=== PATIENT | male | born 1950 | race Caucasian/White ===

== ENCOUNTER 2016-04-02 09:03 | Emergency (ER) | payer MEDICARE ==
[~2016-04-02] VITALS: Ht 170.2 cm; Wt 100.0 kg
[~2016-04-02 09:03] MED LIST: CITA20TA PO; CLONAZEPAM0.5 M1 PO; ENAL20TA79 PO; POTA-17 PO; TAM4 PO; [UNRECOGNIZED DRUG - CODE] PO; [UNRECOGNIZED DRUG - CODE] PO
[2016-04-02 09:06] VITALS: BP 138/83; PULSE 69; RESP 20; O2SAT 99
--- NOTE | 2016-04-02 09:14 | ED.REPORT ---
HPI-Extremity Problem Upper Date of Service Apr 02, 2016 ED Provider: Dr. Cartagena 65 year old male with a hx of bilat rotator cuff surgeries and HTN who presents to the ED with R shoulder pain after he slipped on ice and fell into the corner of the garage just [employer]. The pain is exacerbated to 10/10 with any movement. He reports a "crunching" movement with any movement. His pain is 5/10 at rest. Pt has a slight head scrape but denies any LOC. He denies any other injury. He last ate cereal at 0730 this AM. Nursing Notes Stated Complaint: FELL/POSS RIGHT SHOULDER INJURY Chief Complaint: Extremity Trauma Nursing Notes Reviewed: Yes Allergies: Coded Allergies: hydrocodone bitartrate (Verified Adverse Reaction, Severe, SUICIDAL, ) Scheduled Allopurinol-Expunged Drug, Do Not Renew! (Allopurinol-Expunged Drug, Do Not Renew!) 300 Mg Tablet 400 MG PO AM Citalopram-Expunged Drug, Do Not Renew! (Citalopram-Expunged Drug, Do Not Renew! ) 20 Mg Tablet 20 MG PO DAILY Colchicine-Expunged Drug, Do Not Renew! (Colchicine-Expunged Drug, Do Not Renew! ) 0.6 Mg Tablet 0.6 MG PO BID Enalapril-Expunged Drug, Do Not Renew! (Enalapril-Expunged Drug, Do Not Renew!) 20 Mg Tablet 20 MG PO AM Potassium Citrate-Expunged Drug, Do Not Renew (Urocit-K--Expunged Drug, Do Not Renew!) 10 Meq Tablet.sa 10 MEQ PO AM Tamsulosin-Expunged Drug, Do Not Renew! (Flomax-Expunged Drug, Do Not Renew!) 0.4 Mg Capsule 0.4 MG PO HS clonazePAM-Expunged Drug, Do Not Renew! (clonazePAM-Expunged Drug, Do Not Renew! ) 0.5 Mg Tablet 0.5 MG PO BID FOR ANXIETY Scheduled PRN oxyCODONE-Acetaminophen 5-325 mg (oxyCODONE-Acetaminophen 5-325 mg) 1 Each Tablet 1-2 TAB PO Q6H PRN PRN For Pain General Time Seen by MD: 09:13 Chief Complaint Shoulder injury right Hx Obtained From: Patient Arrived By: Walk-in Onset Occurred: Just prior to arrival Symptom Duration: Since onset Caused by: Fall on ground Location: : Shoulder right Quality: Painful Severity: Current: Pain level 5 out of 10 Severity: Maximum: Pain level 10 out of 10 Associated with: Denies: Loss of consciousness, Neck pain Exacerbated by: Movement Past Medical History Past Medical History Hypertension Kidney cancer Past Surgical History Partial nephrectomy, 80% left Rotator cuff Bilat L wrist ORIF Back Knees Smoking History Never Smoker Social History Alcohol Use: "Social" Drug Use: Denies drug use Other Social History: Ambulatory Status Independent Review of Systems Basic Review of Systems Eyes: Vision NL, No discharge ENT: Hearing NL, No pain, No nasal congestion, No pharyngeal pain Respiratory: No shortness of breath, No cough Cardiovascular: No chest pain, No palpitations GI: No abdominal pain, No nausea, No vomiting Psychiatric: Normal thought content Constitutional: Denies: Fever Musculoskeletal: Reports: Joint pain, Joint swelling, Denies: Neck pain Skin: Denies Bruising, Denies Rash Neurologic: Denies: Change LOC, Headache Complete sys rev & neg: except as marked. Physical Exam Initial Vital Signs Vital Signs (First) Date Time Temp Pulse Resp B/P Pulse Ox O2 Delivery O2 Flow Rate FiO2 04/02/16 09:06 35.8 69 20 138/83 99 Room Air Initial VS: Reviewed ENT: Conjunctiva normal, No scleral icterus Skin: Warm, Dry, No cyanosis Neurologic: Alert, Oriented, Nonfocal Psychiatric: Mood/affect normal, Behavior normal, Normal thought content General/Constitutional: Awake, Alert, Cooperative Neck: Atraumatic, Supple, Full range of motion Respiratory / Chest: Breath sounds NL, Breath sounds = bilat, No respiratory distress, No rales, No rhonchi, No wheezing Cardiovascular: Heart rate NL, Regular rhythm, Heart sounds NL, Peripheral circulation NL Upper Extremity / MS: Neurologic intact, Vascular intact Gross deformity of R shoulder with fullness anteriorly. Head / Eyes: Normocephalic, PERRL Scrape to R forehead Lower Extremity / Pelvis / MS: Atraumatic, Full range of motion, Neurologic intact, Vascular intact, No edema Interpretation & Diagnostics Interpretation & Diagnostics: CT shoulder: IMPRESSION: 1. Findings consistent with Neer 2 part fracture of the humeral neck and greater tuberosity, with 1.7 cm medial displacement of the transverse humeral neck fracture component. 2. Findings consistent with remote injury of the acromioclavicular joint as well, with multiple associated posttraumatic heterotopic ossification. Dictated by: Serafin Dawson M.D. on 04/02/2016 at 11:57 Lab Results Interpretation Test 04/02/16 09:25 Hold Purple Top Tube Received (Received) Hold Blue Top Tube Received (Received) Hold [place] Top Tube Received (Received) Hold Kraft Top Tube Received (Received) X-Ray Interpretation Xray Interpretation: IMPRESSION: Comminuted fractures of the right humeral neck and greater tuberosity. Dictated by: Serafin Dawson M.D. on 04/02/2016 at 10:11 X-Ray Ordered: Shoulder right Interpretation / Wet Read by: Interpret - Radiologist Re-Eval/Medical Decision Re-Evaluation/Progress #1: Time of Eval: 10:00 Re-Evaluation/Progress Note: Pt updated of imaging results and plan for CT. Re-Evaluation/Progress #2: Time of Eval: 11:59 Re-Evaluation/Progress Note: Pt updated of CT findings. Pain is controlled. Discussed plan for d/c and f/u with ortho. All questions addressed. Consultation : Referral / Consult Name: Kunal Quezada MD Consulted With: Orthopedic Call Returned at: 09:55 Note: Has reviewed imaging. No surgery today. Will see in office tomorrow. Agrees with plan for sling and pain control. Counseled Regarding: Diagnosis, Lab results, Need for follow-up, When/why to return to ED Discharge & Departure Impression: Primary Impression: Proximal humerus fracture Encounter type: initial encounter Fracture type: closed Fracture morphology : unspecified fracture morphology Laterality: right Qualified Code: S42.201A - Unspecified fracture of upper end of right humerus, initial encounter for closed fracture Disposition: Home Discharge Condition All VS Reviewed: Yes Condition: Improved Patient Instructions: Arm Fracture in Adults (ED), How to Use a Sling (GEN) Additional Instructions: You have a fracture to your upper arm. There is no need for surgery today. Dr Quezada will look at the CT scan and will determine if you need surgery in the next days. Use a sling to keep the arm in place. You have an appointment tomorrow with the Dr Quezada at 07:45 AM. For pain you can use Ibuprofen 600mg eery 6 hours and/or 1-2 Percocet every 6 hours as directed. I'm glad you didn't hurt anything else. I hope you heal quickly! You can also use ice packs to help with pain and swelling. Referrals: Amara Giang MD (PCP) Kunal Quezada MD Scribe Attestation Portions of this note were transcribed by Erica Martell. I, (Dr. Cartagena) personally performed the history, physical exam and medical decision-making; I reviewed and confirmed the accuracy of the information in the transcribed note. Signed by: Eirca Martell. 04/02/2016, 1018 copies to: Amara Giang MD; Kunal Quezdaa MD, Shawna L MD Apr 02, 2016 09:13 Erica Martell Apr 02, 2016 09:27
[2016-04-02] MEDS ORDERED: Ondansetron 2 mg/mL 2 mL Inj IVPUSH PRN (09:25)
[2016-04-02] MEDS ORDERED: HYDROmorphone 0.5 mg/0.5 mL iSecure Syringe IVPUSH PRN (09:25)
[2016-04-02] MEDS ORDERED: HYDROmorphone 1 mg/mL Inj IVPUSH ONE (09:25)
[2016-04-02] MEDS ORDERED: oxyCODONE-Acetamin 5-325 mg Tablet PO ONE ×2 (10:05→12:00)
--- NOTE | 2016-04-02 10:12 | DRSVH ---
PROCEDURE: X-RAY RIGHT SHOULDER, MINIMUM TWO VIEWS ([id number]) INDICATIONS: 65 year-old male with right shoulder pain after trauma. TECHNIQUE: 3 views of the shoulder were acquired. COMPARISON: None. FINDINGS: Bones: Comminuted fractures involve the right humeral neck, as well as the base of the greater tubero sity. There is moderate acromioclavicular joint degeneration. No suspicious bony lesions. Visualized ribs appear intact. Soft tissues: No suspicious soft tissue calcifications. IMPRESSION: Comminuted fractures of the right humeral neck and greater tuberosity. Dictated by: Serafin Dawson M.D. on 04/02/2016 at 10:11 Approved by: Serafin Dawson M.D. on 04/02/2016 at 10:11
[2016-04-02] MEDS ORDERED: OXYC1TAB24 PO (11:56)
--- NOTE | 2016-04-02 11:59 | DRSVH ---
PROCEDURE: CT SHOULDER RIGHT W/O CONTRAST ([id number]) INDICATIONS: 65 year-old male with proximal humeral fracture. TECHNIQUE: Noncontrast 1-1.5 mm thick sections acquired from the acromioclavicular joint to the inferior scapula , with coronal and sagittal reformatting. COMPARISON: [facility], CR, XR SHOULDER MIN 2VW RT, 04/02/2016, 9:42. FINDINGS: Image quality: Excellent. Bones: Transverse fracture through the right humeral neck is again noted, with up to 1.7 cm of medial displacement of the humeral shaft on coronal reformatted images. Additional comminuted fracture line s involve the base of the greater tuberosity, with less than 1 cm of fracture component displacement on sagittal images. There is acromioclavicular joint degeneration, low lying acromion as well as mult iple ossified fragments around the acromioclavicular joint, measuring up to 2.9 cm. The visualized sc apular body appears intact. No suspicious lytic or blastic bony lesions. Soft tissues: Visualized right upper lung appears clear. No axillary adenopathy by CT size criteria. No soft tissue hematomas. IMPRESSION: 1. Findings consistent with Neer 2 part fracture of the humeral neck and greater tuberosity, with 1.7 cm medial displacement of the transverse humeral neck fracture component. 2. Findings consistent with remote injury of the acromioclavicular joint as well, with multiple assoc iated posttraumatic heterotopic ossification. Dictated by: Serafin Dawson M.D. on 04/02/2016 at 11:57 Approved by: Serafin Dawson M.D. on 04/02/2016 at 11:57
[2016-04-02 12:09] VITALS: BP 122/70; PULSE 58; RESP 18; O2SAT 96
[2016-04-07] MEDS ORDERED: PRE20 PO (08:40)
[2016-04-07] MEDS ORDERED: FURO-129 PO (08:40)
[2016-04-07] MEDS ORDERED: UROCIT K PO (08:40)
[2016-04-07] MEDS ORDERED: KLO5T PO (08:40)
[2016-04-07] MEDS ORDERED: ZYL100 PO (08:40)
[2016-04-07] MEDS ORDERED: TAMS0.4C98 PO (08:40)
[2016-04-07] MEDS ORDERED: ENAL20TA PO (08:40)
[2016-04-07] MEDS ORDERED: CITA20TA11 PO (08:40)
== END 2016-04-02 12:20 | disposition home or self-care (01) ==
LOC: SED 09:03
DX: S42.221A 2-part displaced fracture of surgical neck of right humerus, initial encounter for closed fracture (principal); S42.251A Displaced fracture of greater tuberosity of right humerus, initial encounter for closed fracture; W01.0XXA Fall on same level from slipping, tripping and stumbling without subsequent striking against object, initial encounter; Y93.01 Activity, walking, marching and hiking; Y99.8 Other external cause status; Y92.015 Private garage of single-family (private) house as the place of occurrence of the external cause; I10 Essential (primary) hypertension; Z85.528 Personal history of other malignant neoplasm of kidney; Z88.5 Allergy status to narcotic agent; Z88.6 Allergy status to analgesic agent
CPT/HCPCS: 73030; 73200; 96374; 96375; 96376; 99285; J1170; J2405

== ENCOUNTER 2016-04-09 11:56 | Day surgery (SDC) | payer MEDICARE ==
[2016-04-09] VITALS (16 sets, daily range): BP systolic 128–166; BP diastolic 68–96; PULSE 56–96; RESP 14–17; O2SAT 93–96
[~2016-04-09] VITALS: Ht 170.2 cm; Wt 99.8 kg
[~2016-04-09 11:56] MED LIST changes: -CITA20TA PO; +CITA20TA11 PO; -CLONAZEPAM0.5 M1 PO; +CeFAZolin 2 Gm/50 mL D5W IV Premix IV ONE; +ENAL20TA PO; -ENAL20TA79 PO; +FURO-129 PO; +KLO5T PO; +Lactated Ringer's 1,000 ML IV SCH; -POTA-17 PO; +PRE20 PO; -TAM4 PO; +TAMS0.4C98 PO; +UROCIT K PO; +ZYL100 PO; -[UNRECOGNIZED DRUG - CODE] PO; -[UNRECOGNIZED DRUG - CODE] PO
[2016-04-09] MEDS ORDERED: fentaNYL-PF 50 mCg/mL 2 mL Inj ONE (11:57)
[2016-04-09] MEDS ORDERED: CeFAZolin 2 Gm/50 mL D5W Duplex Bag IV ONE (12:32)
[2016-04-09] MEDS ORDERED: Lactated Ringer's 1,000 ML IV ONE (12:38)
[2016-04-09] MEDS ORDERED: Tranexamic Acid 100 mg/mL 10 mL Inj IV SCH (12:50)
[2016-04-09] MEDS ORDERED: CeFAZolin Inj 2 GM in IV Premix 1 EACH IV SCH (12:50)
--- NOTE | 2016-04-09 13:04 | PCM.HPANE ---
Patient Data Date of Service: Apr 09, 2016 Surgeon Admitting Provider: Attending Provider:Kunal Quezada MD Primary Care Physician:Amara Giang MD Other Provider:Virgil Ayala Anesthesia Reason for Visit Right Humerus Fracture Ht/WT & BMI Height (Feet): 5 Height (Inches): 7.00 Weight (Kilograms): 99.790 Body Mass Index 34.00 Allergies Coded Allergies: hydrocodone bitartrate (Verified Adverse Reaction, Severe, SUICIDAL, ) Past Anesthesia History Anesthesia History: Denies:: Abnormal Airway, Anesthesia Reactions, Difficult Intubation, Fam Anesthesia Reaction, Fam Malignant Hypertherm, Malignant Hyperthermia Diabetes History Hx Diabetes?: No MRSA MRSA: No Medications Hypertension Medication: Yes (ENALPRIL) Home Meds Incl Beta Fabi: No Reported Medications [Urocit K] No Conflict Check1,080 Mg PO DAILY 04/07/16 Prednisone (PredniSONE)20 Mg [id number] Mg PO DAILY PRN PRN Ref 0 X 3 DAYS 04/07/16 Furosemide (Lasix)20 Mg Atfoha85 Mg PO DAILY 30 Days Ref 0 04/07/16 Tamsulosin (Flomax)0.4 Mg Capsule0.4 Mg PO DAILY Ref 0 04/07/16 Enalapril Maleate 20 Mg Livnlj59 Mg PO DAILY 04/07/16 Clonazepam 0.5 Mg Tablet0.5-1 Mg PO TID PRN For Anxiety Ref 0 04/07/16 Citalopram 20 Mg Eknpsl61 Mg PO DAILY Ref 0 04/07/16 Allopurinol 100 Mg [id number] Mg PO DAILY Ref 0 04/07/16 Discontinued Reported Medications clonazePAM-Expunged Drug, Do Not Renew! 0.5 Mg Tablet0.5 Mg PO BID #30 TAB FOR ANXIETY 02/26/12 Tamsulosin-Expunged Drug, Do Not Renew! (Flomax-Expunged Drug, Do Not Renew!) 0.4 Mg Capsule0.4 Mg PO HS #30 CAP 02/26/12 Citalopram-Expunged Drug, Do Not Renew! 20 Mg [id number] Mg PO DAILY #30 TAB 02/26/12 Potassium Citrate-Expunged Drug, Do Not Renew (Urocit-K--Expunged Drug, Do Not Renew!)10 Meq Tablet.sa10 Meq PO AM Ref 0 05/07/08 Enalapril-Expunged Drug, Do Not Renew! 20 Mg Ogehpf58 Mg PO AM Ref 0 05/07/08 Colchicine-Expunged Drug, Do Not Renew! 0.6 Mg Tablet0.6 Mg PO BID Ref 0 05/07/08 Allopurinol-Expunged Drug, Do Not Renew! 300 Mg [id number] Mg PO AM Ref 0 05/07/08 Discontinued Scripts oxyCODONE-Acetaminophen 5-325 mg 1 Each Tablet1-2 Tab PO Q6H PRN For Pain #30 TABLET Prov:Jagruti Cartagena MD 04/02/16 History History of ENT Problems?: Yes HEENT History: Positive for:: Cataracts Hearing Problem Denies:: Abnormal Airway Difficult Intubation Dysphagia Sinus Problem TMJ Teeth Condition: Missing Teeth Hx of Heart Problems?: Yes Cardiovascular History: Positive for:: Hypertension (HYPERLIPIDEMIA) Peripheral Vascular (VARICOSE VEINS LE) Denies:: AICD Abdominal Aortic Aneurism Atrial Fibrillation Cardiac Surgery Chest Pain Congestive Heart Failure Edema Heart Murmur Irregular Heartbeat Pacemaker Rheumatic Fever Thrombophlebitis Valvular Heart Disease Hx of Respiratory Problem?: Yes Respiratory History: Denies:: Asthma COPD Chest Surgery Cough Dyspnea Emphysema Hemoptysis Oxygen Administration Pneumonia Pulmonary Embolism Tuberculosis Use of C-PAP Machine (SNORES) Hx Neurologic Problems?: No Neurological History: Denies:: Alzheimer's Disease CVA Dementia Dizziness Headaches Multiple Sclerosis Parkinson's Disease Seizures Hx of GI Problems?: Yes Gastrointestinal History: Denies:: Cirrhosis Diverticulitis Gastroesphageal Reflux Gastrointestinal Bleeding Heartburn Hepatitis Hiatal Hernia Rectal Bleeding (HX COLON POLYPS) Other GI Pertinent History: HX OF UMBILICAL HERNIA,LG LT FLANK INCISIONAL HERNIA Hx of Problems?: Yes Genitourinary History: Positive for:: Kidney Stones (HX OF) Urinary Tract Infection HX of Peritoneal Dialysis: No Other Pertinent History: HX BLADDER DIVERTICULI S/P LT PARTIAL NEPHRECTOMY FOR RENAL CA Male Hx: Positive for:: Prostate Problems (BPH) Denies:: Scrotal Mass Testicular Surgery Skin History: Positive for:: History Skin Disorders? 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) Denies:: Pressure Ulcers Hx Musculoskeletal Problems?: Yes Musculoskeletal History: Positive for:: Back Injury Musculoskeletal Trauma (S/P RIGHT SHOULDER, LEFT WRIST, BILATERAL KNEE TEARS X2) Osteoarthritis (KNEES) Denies:: Degenerative Joint Joint Replacement Systemic Lupus Hx of Psycho/Social Problems?: Yes Psycho Social History: Positive for:: Hx Depression Denies:: Anxiety Bipolar Disorder Suicide Attempt Hx Surgeries?: Yes (ROTATOR CUFF, BACK SURGERY, WRIST SURGERY, KNEE SURGERY,LT PARTIAL NEPHRECT) Hx Any Other Health Problems?: Yes Other History: Positive for:: Cancer (LT RENAL CA) Hospitalization Denies:: Endocrine Disease Thyroid Disease History Blood Transfusions: Denies:: Blood Transfusions Hx Diabetes: No Hx Alcohol Use: Yes ("SOCIAL")Hx Substance Use: No Smoking Status: Never Smoker Have You Smoked inLast 12 mo: No Stop/Bang S-Snoring: Do You Snore Loudly: Yes T-Tired: feel tired, fatigued: No O-Obsered: Observed not breath: No P-Blood Pressure: treated: Yes B- Body Mass Index > 35 kg/m2: No A- Age over 50: Yes N- Neck Large Circumference: No G- Gender Male: Yes ESTELA Total Score: 4 ESTELA Risk Assessment: High Risk, =/>3 Yes ESTELA Category 2: Yes Risk Assessment Category Category 1A: Patient has history of documented sleep apnea, and HAS NOT received any narcotic, sedative or anesthesia administration during this stay. Category 1B: Patient has history of documented sleep apnea, and HAS received any narcotic , sedative or anesthesia administration during this stay Category 2: Patient has SUSPECTED Obstructive Sleep Apnea, and HAS received any narcotic , sedative or anesthesia administration during this stay. Category 3: Patient has SUSPECTED Obstructive Sleep Apnea and HAS NOT received narcotic, sedative or anesthesia administration during this stay. Category 4: Outpatient in Procedural Areas with known sleep apnea or who screen positive for High Risk via the STOP/BANG questionnaire. Exam Exam Vital Signs Vital Signs Date Time Temp Pulse Resp B/P Pulse Ox O2 Delivery O2 Flow Rate FiO2 04/09/16 12:28 36.6 56 14 156/96 96 Room Air General Appearance: Alert, Oriented X3, Cooperative, No Acute Distress HEENT/AIRWAY: MP 2, MP 3, Neck Movement (full rom), Mouth Opening (normal) Lungs: Clear to Auscultation, Normal Air Movement Heart: Exam Unremarkable, Regular Rate/Rhythm, No Murmurs/Rubs/Gallops Meds/Labs/Diagnostics Admission Meds Current Medications Lactated Ringer's (Lr) 1,000 ml @ ud STK-MED ONCE IV Last administered on 04/09t 12:38; Start 04/09/16 at 12:38; Stop 04/09/16 at 12:39; Status DC Plan Impression Patient chart reviewed, patient interviewed and anesthestic plan with risks, benefits, and alternatives discussed, and informed consent obtained. NPO Status: confirmed before mn ASA Physical Status: ASA2 Mod Systemic Disease Anesthetic Support Modalities: [place] Scope Anesthetic Plan: GA, Regional Block Bene/Risks/Altern/Consents: Yes HP Complete Prior to Induction: Yes Parth Mg MD Apr 09, 2016 13:03
[2016-04-09] MEDS ORDERED: Lactated Ringer's 500 ML IV PRN (14:44)
[2016-04-09] MEDS ORDERED: Lactated Ringer's 1,000 ML IV SCH (14:44)
[2016-04-09] MEDS ORDERED: EPHEDrine Sulfate 50 mg/mL Inj IVPUSH PRN (14:45)
[2016-04-09] MEDS ORDERED: MetoCLOpramide 5 mg/mL 2 mL Inj IVPUSH PRN (14:45)
[2016-04-09] MEDS ORDERED: Atropine 0.4 mg/mL Inj IVPUSH PRN (14:45)
[2016-04-09] MEDS ORDERED: fentaNYL-PF 50 mCg/mL 2 mL Inj IVPUSH PRN (14:45)
[2016-04-09] MEDS ORDERED: hydrALAZINE 20 mg/mL Inj IVPUSH PRN (14:45)
[2016-04-09] MEDS ORDERED: HYDROmorphone 1 mg/mL Inj IVPUSH PRN ×2 (14:45→18:05)
[2016-04-09] MEDS ORDERED: Phenylephrine 10,000 mCg/mL Inj IVPUSH PRN (14:45)
[2016-04-09] MEDS ORDERED: Labetalol 5 mg/mL 4 mL Inj IV PRN (14:45)
[2016-04-09] MEDS ORDERED: Ondansetron 2 mg/mL 2 mL Inj IVPUSH PRN (14:45)
[2016-04-09] MEDS ORDERED: Gentamicin 40 mg/mL 2 mL Inj INJ ONE (15:13)
[2016-04-09] MEDS ORDERED: Bacitracin 50,000 unit Inj IRRIGATION ONE ×2 (15:14)
[2016-04-09] MEDS ORDERED: Bupivacaine Liposome 1.3% 20 mL Inj ONE (16:28)
[2016-04-09] MEDS: Sodium Chloride LOK Flush 10 mL Syringe IVFLUSH SCH (16:30)
--- NOTE | 2016-04-09 17:40 | PCM.ORTHOP ---
Orthopedic Operative Report Date of Service: Apr 09, 2016 Pre Operative Diagnosis Right proximal humerus fracture Post Operative Diagnosis Same Procedure Right reverse total shoulder arthroplasty, biceps tenodesis, tuberosity fixation Surgeon Surgeon: Kunal Quezada MD Assistants: Penelope Hampton Indication for Procedure Right proximal humerus fracture, rotator cuff tear Findings Right comminuted proximal humerus fracture Details of Procedure [employer] reverse fracture system: Size 11 humeral stem, small baseplate, 39+6 mm insert, 39+4 mm Glenosphere, KENT coated pressfit glenoid baseplate with 6.5 x 25 mm central screw, 4.75 x 30 mm locking screws, 4.75 x 36 mm locking screw Anesthesia: general ETA Complications: none Estimated Blood Loss: 200 mL Findings: four part comminuted proximal humerus, head split in multiple comminuted pieces Specimens: None Patient Status: Patient was extubated and taken to recovery room in stable condition. Indications: Natacha Steve is a 65-year-old right hand dominant s/p fall sustaining a comminuted right proximal humerus fracture approximately several days ago. Patient was given the option of open reduction internal fixation; however given history of massive rotator cuff tear with persistent symptoms patient has elected for reversed arthroplasty with tuberosity fixation and biceps tenodesis. The patient was offered conservative treatments versus surgical intervention given the severity of the injury and the patient opted for surgery. A clear explanation was given to the patient regarding the condition present, and the available conservative and surgical options. It was emphasized that the risks and benefits of surgery include but are not limited to infection, wound healing problems, damage to adjacent structures such as nerves, blood vessels and tendons, custodial disability and pain, arthritis, hypersensitivity, deep vein thrombosis, pulmonary embolism, broken hardware, failure of surgery, need for further procedures at time of surgery or later, cast related problems, loss of limb or life. The patient was given an explanation and the patient voiced understanding of what to expect after the procedure or surgery, the limitations in activities of daily living, the likely duration for post operative recovery and the instructions that are to be followed. At the end the patient was invited to seek clarification or ask further questions but there were none. The patient voiced understanding of the entire consultation. Description of Procedure: Patient was taken to operating room and transferred to operating table in supine position. Time out was performed with both anesthesia and orthopaedics faculty present to confirm details of case to be performed. After time out performed, patient placed under general anesthesia and endotracheal tube secured into place. Once endotracheal tube secured, the patient was placed into the modified beach-chair position at about 40 degrees of flexion. Patient position was again checked to ensure all bony prominences adequately padded. The right arm was prepped and draped in the usual sterile fashion to the level of the neck. A standard deltopectoral incision was made beginning immediately above the coracoid process and extending distally and laterally. The deltoid muscle was split through the interval being carefully not to release any deltoid along the clavicle or humerus. The proximal one-third of the pectoralis major muscle was incised off the humerus for better exposure. The supraspinatus and infraspinatus muscles were intact and still attached to the fractured greater tuberosity. The subscapularis was intact and also still attached to the fractured lesser tiberosity. It was incised through the tendinous portion just medial to the lesser tuberosity and tagged with 2-0 Fiberwire. The arm was externally rotated to expose the humeral head while the anterior humeral circumflex vessels ("3 sisters") were identified, ligated and then cut protecting the axillary nerve throughout inferior and medial to the vessels. The long head of the biceps was identified along the bicipital groove, incised at its origin and tagged for later tenodesis to the pectoralis major A pilot teacher hole was then made with a 4 mm drill through the humeral head along the axis of the humeral shaft just lateral to the head's articular surface and just posterior to the bicipital groove. The 6 mm trochar pointed reamer was then inserted with continued circumferential reaming in 1 mm increments until light cortical contact was achieved with the reamer. The intramedullary resection guide was assembled and the version control alison was placed to allow for 30 degrees retroversion. The neck cut was verified with a bat wing. We started broaching with the 8 mm broach and ended with the 11 mm broach which solidly fit in the canal and fully seated on the humerus. The broach cover was then used to protect the humerus while attention was turned to the glenoid. Any remaining labrum was removed from the glenoid along with surrounding osteophytes. The glenoid sizer was centered on the glenoid and a 3.2 mm Steinmann pin was inserted with a 10 degree inferior tilt with solid bone purchase. The glenoid was then reamed with the cannulated base plate reamer over the top of the Steinmann pin until a small bone shelf was evident circumferentially. The cannulated trial glenoid baseplate was placed and fully seated. The glenoid baseplate implant was impacted and fully seated. The 6.5 mm central screw was then inserted following removal of the Steinmann with good compression. The 2 surrounding peripheral screws were then drilled with a 2.7 mm drill through the threaded locking guides and then placed. The glenosphere trial was placed with offset and good fit. The 39 mm glenosphere implant was then tamped in place with appropriate offset. The standard humeral tray/bearing were placed and a trial reduction was performed. The patient achieved 80 degrees of external/internal rotation, 110 degrees of abduction, 45 degrees extension and 120 degrees of forward flexion with complete stability. The trail components were removed and the wound was copiously irrigated with 3 liters of normal saline. The mini stem was inserted followed by impaction of the humeral tray/bearing. The implant was reduced and once again range of motion was found to be 80 degrees of external/internal rotation, 110 degrees of abduction, 45 degrees extension and 120 degrees of forward flexion with complete stability. The wound was again irrigated. The humeral head was morselized and placed under the pearl of humeral head to improve bone stock and promote tuberosity healing. The tuberosities were repaired with #5 and #2 Fiberwire through previously made bone tunnels and through the implant. The long head of biceps was tenodesed to the pectoralis major. The deltoid interval was closed with 0 vicryl followed by 2-0 vicryl subcutaneous closure and then stratofixl stitches for the skin. A drain was placed as well as transexamic acid and a local anesthetic cocktail into the skin and gentamicin into the joint. Sterile dressings were applied along with a shoulder immobilizer and abduction pillow. The patient was then awoken from anesthesia and extubated, his neurovascular status was intact when checked in PACU. Pt tolerated procedure well and there was no complications. Grafts, Implants: Implants-See Implant Record Complications There were no periprocedural complications identified. Condition Stable Anesthetic Administered: GA Catheters: None Output, Estimated Blood Loss: 200 Blood Admin during surgery: No Surgical Cast or Splint: Shoulder Immobilizer Surgical Specimen Removed: No Specimen sent to Pathology: No copies to: Kunal Quezada MD, Christopher L MD Apr 09, 2016 17:40
--- NOTE | 2016-04-09 17:47 | PCM.ANEP1 ---
Post Anesthesia Phase 1 PACU Phase 1 Assessment Date of Service: Apr 09, 2016 Vital Signs 36.9 134/92 86 18 95% FM Anesthetic Administered: GA Level of Alertness: Sleepy, easy to arouse KELLER's with Equal Strength: Yes Pain: No Nausea or Vomiting: No Oxygen Delivery: Simple Mask Lungs: Clear to Auscultation, Normal Air Movement Parth Mg MD Apr 09, 2016 17:47
--- NOTE | 2016-04-09 17:48 | PCM.ANEP2 ---
Post Anesthesia Evaluation ASA/CMS Post Anesthesia Date of Service: Apr 09, 2016 VS in Patient's Normal Range?: Yes Resp Stable; Airway Patent?: Yes CV Function & Hydration Stable: Yes Mental Status Recovered?: Yes Pain control Satisfactory?: Yes N/V Control Satisfactory?: Yes Parth Mg MD Apr 09, 2016 17:48
[2016-04-09] MEDS ORDERED: diphenhydrAMINE 25 mg Capsule PO PRN (18:05)
[2016-04-09] MEDS ORDERED: Sodium Biphos-Phos 133 mL Enema RECTAL PRN (18:05)
[2016-04-09] MEDS ORDERED: Polyethylene Glycol (PEG) 17 Gm Powder PO PRN (18:05)
[2016-04-09] MEDS ORDERED: Magnesium Hydroxide 10 mL Oral Concentration PO PRN (18:05)
--- NOTE | 2016-04-09 19:10 | NUR ---
Post op transfer Patient arrived at 1910 from PACU. This RN received report from PACU nurse. Patient on 3L O2, has HARRIET drain right shoulder, with little Sero-sanguineous drainage. Right shoulder has ABD dressings, clean dry and intact, Left forearm IV patent, asymptomatic. Denies chest pain, shortness of breath and pain at this time. Oriented patient to call light, and bed settings.
--- NOTE | 2016-04-09 19:11 | DRSVH ---
PROCEDURE: X-RAY RIGHT SHOULDER, MINIMUM TWO VIEWS ([id number]) INDICATIONS: s/p right reverse TSA TECHNIQUE: 2 views of the shoulder were acquired. COMPARISON: None. FINDINGS: Bones: Postsurgical changes for right shoulder reverse total arthroplasty. Orthopedic hardware is i ntact. No lucency is identified at the bone hardware interface. Soft tissues: No suspicious soft tissue calcifications. IMPRESSION: Expected postsurgical change for right reverse total shoulder arthroplasty. Dictated by: Nathalie Maria MD, PhD on 04/09/2016 at 19:09 Approved by: Nathalie Maria MD, PhD on 04/09/2016 at 19:09
[2016-04-09] MEDS: Senna-Docusate 8.6-50 mg Tablet PO SCH (20:51)
[2016-04-09] MEDS: oxyCODONE-Acetamin 5-325 mg Tablet PO PRN (20:52)
[2016-04-10 00:19] VITALS: BP 126/68; PULSE 77; RESP 20; O2SAT 94
[2016-04-10] MEDS: Sodium Chloride LOK Flush 10 mL Syringe IV SCH ×2 (00:30→08:06)
[2016-04-10] MEDS: Sodium Chloride LOK Flush 10 mL Syringe IVFLUSH SCH ×2 (00:30→08:06)
[2016-04-10] MEDS: oxyCODONE-Acetamin 5-325 mg Tablet PO PRN ×4 (00:59→10:58)
[2016-04-10 05:08] VITALS: BP 147/78; PULSE 73; RESP 20; O2SAT 97
[2016-04-10] MEDS ORDERED: Hip/Knee Infiltration Cocktail IM ONE ×7 (06:00)
[2016-04-10] MEDS ORDERED: Bupivacaine Liposome 1.3% 20 mL Inj INFILTRATE ONE (06:00)
[2016-04-10 06:20] LABS: BASOPHILS % (AUTO) 0.1 % (0-3); EOSINOPHILS % (AUTO) 0.2 % (0-5); MONOCYTES % (AUTO) 6.4 % (4-12); Mean Corpuscular Hemoglobin 28.8 pg (27.0-35.0); Platelet Count 287 bil/L (150-400)
--- NOTE | 2016-04-10 06:32 | PCM.PNORTH ---
Subjective Date of Service: Apr 10, 2016 Visit Information: Reason for Visit Right Humerus Fracture Surgery/Surgery Date Post-Op Day # Date of Admission: Hospital Day # Subjective Found patient awake and alert this morning and sitting up in bed. No complaints of pain at this time. Discussed with patient discharged today to home and he is aware of this. Discussed his mobility goals and restrictions today in some detail with the patient. The plan will be for patient is discharged home today after OT has seen him to review his mobility parameters. Postop General: No Complaints, No Shortness of Breath, No Chest Pain, Good Appetite Pain Management: PO Objective Exam Objective Orientation: Alert and oriented 3 and pleasant. Dressing: Interoperative dressing clean dry and intact. Wound: Wound is not observed today. There is significant ecchymosis present about the proximal right upper extremity Compartments: Compartments of the right upper extremity are soft and nontender. Mobility/sensation: Mobility at the wrist hand and fingers is observed and is normal. Abduction wedge: In place on a arm sling. ALEJANDRO hose: Absent Denise: Absent Drain: Wound drain in place and this was removed this morning and pressure dressing was applied. Gait: No gait as of this time. Vital Signs and I/O Vital Sign - Last Date Time Temp Pulse Resp B/P Pulse Ox O2 Delivery O2 Flow Rate FiO2 04/10/16 05:08 36.6 73 20 147/78 97 Nasal Cannula 1.00 Intake and Output 04/09/16 04/09/16 04/10/16 Cumulative From/Thru 15:00 23:00 07:00 04/07/16 08:46 - 04/10/16 06:04 Intake Total 1060 ml 210 ml 150 ml 1420 ml Output Total 550 ml 400 ml 950 ml Balance 1060 ml -340 ml -250 ml 470 ml Intake Oral 150 ml 150 ml IV Total 1060 ml 210 ml 1270 ml Output Urine Total 200 ml 400 ml 600 ml Estimated Blood Loss 350 ml 350 ml Lab & Micro Results Laboratory Tests Test 04/10/16 05:45 General Appearance: Alert, Oriented X3, Cooperative, No Acute Distress Extremities: No Compartment Syndrom Noted Postop Sensory Motor: Distal Motor Intact, Movement in Fingers, Distal Sensation Intact SURGICAL WOUND : Drain Location Body Site: Shoulder Wound Drainage Type: HARRIET Drain #1 Activity: Activity per PT, Ambulate with PT (patient is nonweightbearing at the right upper extremity. Passive range of motion only at the right shoulder. Internal rotation to the body. Zero external rotation. Forward flexion to 90 . Zero abduction times the first 2 weeks.) Catheters: None Assessment & Plan Plan Postop day # 1 from right reverse total shoulder with biceps tenodesis and tuberosity fixation secondary to right humerus fracture. Performed by Dr. Kunal Quezada on 04/09/2016. Weight bearing status: Strict nonweightbearing at the right upper extremity. Mobility aid: Right arm sling with shoulder immobilizer and abduction wedge Immobilization: Right arm sling with shoulder immobilizer and abduction wedge should remain in place full-time until seen in office with exception of time out of the sling for elbow wrist and hand range of motion 3 times daily Precautions: PROM only, 0 external rotation, 0 abduction, internal rotation to the body, forward flexion to 90. Arm sling should be removed 2-3 times a day for gentle elbow wrist and hand range of motion. Physical therapy: Physical therapy and/or occupational therapy please work with patient prior to discharge today for review of mobility restrictions and help in gait and safety precautions. PROM only, 0 external rotation, 0 abduction, internal rotation to the body, forward flexion to 90. Pain control: By mouth pain medication only with Percocet 5/325. DVT prophylaxis: ASA 81 mg daily 2 weeks postop Wound care: Keep wound clean and dry and covered until seen in the office at 2 weeks. Infectious DZ: None Denise: None Dressing: Maintain interoperative dressing clean dry and intact until seen in office at 2 weeks. Drain: HARRIET drain DC'd this morning and pressure dressing placed. Abduction wedge: Abduction wedge in place on shoulder immobilizer/arm sling ALEJANDRO hose: None Nursing communication: Nursing please reinforce dressing as needed prior to discharge. 2-week follow-up: Follow-up in 2 weeks at [facility] orthopedic clinic with mid-lower provider for removal of sutures and right shoulder x-rays on arrival. 6-week follow-up: Follow-up in 6 weeks at [facility] orthopedic clinic with Dr. Kunal Quezada. Discharge plan: Discharge patient home today on 04/10/2016 with spouse and family has caregivers after patient is seen by physical therapy/occupational therapy this morning.. VTE Prophylaxis: Other (ASA 81 mg by mouth daily 2 weeks postop) Dmitry Srivastava PA-C Apr 10, 2016 06:32
--- NOTE | 2016-04-10 06:38 | PCM.DIOPOR ---
OP Ortho Discharge Instruction Dates of Hospitalization Date of Discharge: Apr 10, 2016 Providers Admitting Physician: Primary Care Physician: Amara Giang MD Attending Physician: Kunal Quezada MD Diagnosis at Time of Discharge Post operative diagnosis Status post right humeral fracture with right reverse total shoulder arthroplasty, biceps tenodesis and humeral tuberosity fixation performed on 02/[address] Kunal Quezada. Diet Discharge Diet: Low fat, Low Sodium, Heart Healthy, Diabetic Activity Activity-General: Try not to overdue, Be up and about, Balance rest and activity, Ice incision 3-5 time/day for 20min, Activity as pain allows, Activity as energy allows Right Upper Extremity: Non-weight bearing (PROM only with 0 external rotation, 0 abduction, internal rotation to the body, forward flexion to 90.) Discharge Assist Device: Shoulder Immobilizer Dressing and Incisional Care Dressing Care: Keep dressing clean, dry & intact Hygiene: No showering, DO NOT soak incision under water, NO bathtub, hot tub or whirlpool Additional Instructions Discharge Instructions Postop day # 1 from right reverse total shoulder with biceps tenodesis and tuberosity fixation secondary to right humerus fracture. Performed by Dr. Kunal Quezada on 04/09/2016. Weight bearing status: Strict nonweightbearing at the right upper extremity. Mobility aid: Right arm sling with shoulder immobilizer and abduction wedge Immobilization: Right arm sling with shoulder immobilizer and abduction wedge should remain in place full-time until seen in office with exception of time out of the sling for elbow wrist and hand range of motion 3 times daily Precautions: PROM only, 0 external rotation, 0 abduction, internal rotation to the body, forward flexion to 90. Arm sling should be removed 2-3 times a day for gentle elbow wrist and hand range of motion. Physical therapy: Physical therapy and/or occupational therapy please work with patient prior to discharge today for review of mobility restrictions and help in gait and safety precautions. PROM only, 0 external rotation, 0 abduction, internal rotation to the body, forward flexion to 90. Pain control: By mouth pain medication only with Percocet 5/325. DVT prophylaxis: ASA 81 mg daily 2 weeks postop Wound care: Keep wound clean and dry and covered until seen in the office at 2 weeks. Infectious DZ: None Denise: None Dressing: Maintain interoperative dressing clean dry and intact until seen in office at 2 weeks. Drain: HARRIET drain DC'd this morning and pressure dressing placed. Abduction wedge: Abduction wedge in place on shoulder immobilizer/arm sling ALEJANDRO hose: None Nursing communication: Nursing please reinforce dressing as needed prior to discharge. 2-week follow-up: Follow-up in 2 weeks at [facility]opedic [facility] for removal of sutures and right shoulder x-rays on arrival. 6-week follow-up: Follow-up in 6 weeks at [facility] orthopedic [facility] with Dr. Kunal Quezada. Discharge plan: Discharge patient home today on 04/10/2016 with spouse and family has caregivers after patient is seen by physical therapy/occupational therapy this morning.. Follow Up Plan Follow Up Plan Patient will follow up at 2 weeks, 6 weeks and 12 weeks postoperatively. Patient will follow up when necessary in the interim. Follow-up Provider (F9): Kunal Quezada MD Follow-up appointment: Days (follow-up at [facility] orthopedic clinic 5-7 days' postop for wound check and bandage change.), Weeks (follow-up in 2 weeks status post [facility] orthopedic clinic with medical provider for wound check, suture removal, dressing change and x-rays.) Call your provider for: Fever, Chills, Shortness of breath, Vomitting, Drainage at incision Dmitry Srivastava PA-C Apr 10, 2016 06:38
[2016-04-10] MEDS ORDERED: OXYC1TAB24 PO (06:43)
[2016-04-10] MEDS ORDERED: DOCU-41 PO (06:43)
[2016-04-10] MEDS ORDERED: ASPI500T8 PO (06:43)
--- NOTE | 2016-04-10 06:52 | PCM.DC.ORT ---
Discharge Summary Date of Service: Apr 10, 2016 Date of Hospital Admission: 04/09/2016 Date of Surgery: Apr 09, 2016 Date of Discharge: Apr 10, 2016 Reason for Hospitalization: Right proximal humerus fracture Procedures Performed: Right reverse total shoulder, biceps tenodesis, tuberosity fixation Hospital Course: Patient was admitted through the emergency room on 04/09/[address] Kunal Frances regarding right shoulder injury. He was then taken to the operating room on 04/09/2016 where his procedure was performed without incident. Upon awakening he was taken to the postoperative care unit and upon recovery from anesthesia and was taken to the orthopedic care unit where he participated in physical therapy and/or occupational therapy and was discharged on 04/10/2016. Problems: (1) Comminuted fracture of right humerus Status: Acute ICD Code: S42.351A Disposition: Discharged to home with spouse's caregiver on 04/10/2016. Orthopedic Follow up Plan: In Two Weeks in my clinic (follow-up in 2 weeks at [facility] orthopedic clinic with medical provider for wound check, suture removal and x-rays.) Discharge Instructions: Postop day # 1 from right reverse total shoulder with biceps tenodesis and tuberosity fixation secondary to right humerus fracture. Performed by Dr. Kunal Quezada on 04/09/2016. Weight bearing status: Strict nonweightbearing at the right upper extremity. Mobility aid: Right arm sling with shoulder immobilizer and abduction wedge Immobilization: Right arm sling with shoulder immobilizer and abduction wedge should remain in place full-time until seen in office with exception of time out of the sling for elbow wrist and hand range of motion 3 times daily Precautions: PROM only, 0 external rotation, 0 abduction, internal rotation to the body, forward flexion to 90. Arm sling should be removed 2-3 times a day for gentle elbow wrist and hand range of motion. Physical therapy: Physical therapy and/or occupational therapy please work with patient prior to discharge today for review of mobility restrictions and help in gait and safety precautions. PROM only, 0 external rotation, 0 abduction, internal rotation to the body, forward flexion to 90. Pain control: By mouth pain medication only with Percocet 5/325. DVT prophylaxis: ASA 81 mg daily 2 weeks postop Wound care: Keep wound clean and dry and covered until seen in the office at 2 weeks. Infectious DZ: None Denise: None Dressing: Maintain interoperative dressing clean dry and intact until seen in office at 2 weeks. Drain: HARRIET drain DC'd this morning and pressure dressing placed. Abduction wedge: Abduction wedge in place on shoulder immobilizer/arm sling ALEJANDRO hose: None Nursing communication: Nursing please reinforce dressing as needed prior to discharge. 2-week follow-up: Follow-up in 2 weeks at [facility] orthopedic clinic with mid-lower provider for removal of sutures and right shoulder x-rays on arrival. 6-week follow-up: Follow-up in 6 weeks at [facility] orthopedic clinic with Dr. Kunal Quezada. Discharge plan: Discharge patient home today on 04/10/2016 with spouse and family has caregivers after patient is seen by physical therapy/occupational therapy this morning.. Management Plan: Patient will be seen at 2 weeks, 6 weeks and 12 weeks postoperatively. Patient will be seen when necessary in the interim. ([Urocit K]) 1,080 MG PO DAILY Allopurinol (Allopurinol) 100 Mg Tablet 400 MG PO DAILY Aspirin EC (Aspirin EC) 500 Mg Tablet.dr 81 MG PO DAILY ASA 81 mg EC by mouth daily 2 weeks postop for DVT prophylaxis. Citalopram (Citalopram) 20 Mg Tablet 20 MG PO DAILY Clonazepam (Clonazepam) 0.5 Mg Tablet 0.5-1 MG PO TID PRN PRN For Anxiety Docusate Sodium (Colace) 100 Mg Capsule 100 MG PO BID Enalapril Maleate (Enalapril Maleate) 20 Mg Tablet 20 MG PO DAILY Furosemide (Lasix) 20 Mg Tablet 20 MG PO DAILY Prednisone (PredniSONE) 20 Mg Tablet 20 MG PO DAILY PRN PRN PRN X 3 DAYS Tamsulosin (Flomax) 0.4 Mg Capsule 0.4 MG PO DAILY oxyCODONE-Acetaminophen 5-325 mg (oxyCODONE-Acetaminophen 5-325 mg) 1 Each Tablet 1-2 TAB PO Q4-6H PRN PRN For Severe Pain Dmitry Srivastava PA-C Apr 10, 2016 06:52
[2016-04-10] MEDS: Senna-Docusate 8.6-50 mg Tablet PO SCH (08:05)
--- NOTE | 2016-04-10 10:53 | NUR ---
Evaluation completed. Please go to "Notes" then click on "Assessments and Notes" (bottom left corner of screen). Then select appropriate discipline tab on top of screen.
--- NOTE | 2016-04-10 11:45 | NUR ---
Social Work Initial Assessment and Discharge: SW met with patient at bedside to discuss discharge plan. Patient is a 65 year old male admitted under [facility] for right humerus fracture. Patient payer as [employer]. Patient states residing in [facility] with Roseanne, . Patient has no previous C history. Patient has a walker and cane at home available for use. Patient has no previous SNF history but has outpt history at [facility]. Patient states having AD and was encouraged to bring into hospital. Patient states to provide support and care and to assist with needs. No anticipated discharge needs at this time. Patient to follow up with MD in 2 weeks. PLAN: Home with , via POV, pending clinical course Cameron RIVERA
== END 2016-04-10 13:14 | disposition home or self-care (01) ==
LOC: SAS 11:56 → OSC 19:27 → SAS 04-10 13:14
PROVIDERS: ATTEND Orthopaedic Surgery
DX: S42.291A Other displaced fracture of upper end of right humerus, initial encounter for closed fracture (principal); I10 Essential (primary) hypertension; M10.9 Gout, unspecified; G47.61 Periodic limb movement disorder
CPT/HCPCS: 23470; 36415; 73030; 76942; 85025; 97166; C1776; J0690; J1580; J2250; J7120